=== PATIENT | female | born 1950 | race African-American/Black ===

== ENCOUNTER 2020-01-23 12:35 | Emergency (ER) | payer OTHER, MEDICAID ==
[~2020-01-23] VITALS: Ht 157.5 cm; Wt 54.4 kg
[2020-01-23 15:05] VITALS: BP 150/96
== END 2020-01-23 15:35 | disposition home or self-care (01) ==
LOC: ER 12:35
DX: R51.9 Headache, unspecified (principal); I10 Essential (primary) hypertension; Z90.710 Acquired absence of both cervix and uterus
CPT/HCPCS: 70450

== ENCOUNTER 2020-06-22 22:01 | Inpatient (IN) | payer OTHER, MEDICAID ==
[~2020-06-22] VITALS: Ht 160 cm; Wt 66.0 kg
[2020-06-22 23:18] LABS: Basophils # (auto) 0 10 ^3/uL (0-0.2); Basophils % (auto) 0.5 % (0.0-2.0); Eosinophils # (auto) 0.2 10 ^3/uL (0-0.8); Hematocrit 38.7 % (36.0-46.0); Hemoglobin 13.1 g/dL (12.2-16.2); Lymphocytes # (auto) 2.1 10 ^3/uL (0.4-5.4); Lymphocytes % (auto) 40.9 % (10.0-50.0); Mean Corpuscular Hemoglobin 30.1 pg (28.0-32.0); Mean Corpuscular Hgb Conc. 33.9 g/dL (32.0-36.0); Mean Corpuscular Volume 88.8 fL (80.0-100.0); Monocytes # (auto) 0.4 10 ^3/uL (0-1.3); Neutrophils # (auto) 2.4 10 ^3/uL (1.6-8.6); Neutrophils % (auto) 47.6 % (37.0-80.0); Platelet Count (auto) 262 10^3/uL (140-450); Red Blood Cells 4.36 10^6/uL (4.0-5.20); Red Cell Distribution Width 14.7 % (11.8-14.3); White Blood Cell 5.1 10^3/uL (4.4-10.8)
[2020-06-22 23:31] LABS: Albumin 3.7 g/dL (3.4-5.0); Calcium 8.7 mg/dL (8.5-10.1); INR 0.99 (0.9-1.15); Partial Thromboplastin Time 23.2 sec (23.0-31.2)
[2020-06-22 23:34] LABS: Bilirubin, Total 0.2 mg/dL (0.2-1.0); Total Protein 7.5 g/dL (6.4-8.2)
[2020-06-22 23:35] LABS: Potassium 2.7 mmol/L (3.5-5.1)
[2020-06-23] MEDS: POTASSIUM CHL 20MEQ/100ML 100 ML IV SCH ×2 (00:05→03:15)
[2020-06-23 03:06] LABS: BUN/Creatinine Ratio 23.5
[2020-06-23 03:10] LABS: Potassium 2.8 mmol/L (3.5-5.1)
[2020-06-23] MEDS ORDERED: POTASSIUM EFFERVESENT TAB 25 MEQ PO ONE (04:30)
[2020-06-23 07:20] LABS: Urine Bacteria NONE SEEN /hpf (None Seen); Urine Blood Negative /uL (Negative); Urine Specific Gravity 1.009 (1.001-1.035); Urine WBC 1 /hpf (0 - 5)
[2020-06-23 08:24] LABS: Calcium 8.4 mg/dL (8.5-10.1); Potassium 3.7 mmol/L (3.5-5.1)
[2020-06-23 08:26] LABS: BUN/Creatinine Ratio 18.5
[2020-06-23] MEDS ORDERED: PANTOPRAZOLE 40mg/50ML NS AE 50 ML IV ONE (09:45)
[2020-06-23] MEDS ORDERED: PANTOPRAZOLE 40 MG/10 ML VIAL INJ IV ONE (09:45)
[2020-06-23] MEDS ORDERED: ALBUTEROL SULF 2.5 MG/0.5ML(0.5%) NEB SOLN NEB ONE (10:15)
[2020-06-23] MEDS ORDERED: NITROGLYCERIN 0.4 MG SL TAB SL PRN (10:15)
[2020-06-23] MEDS ORDERED: ONDANSETRON HCL 4 MG/2 ML VIAL IV PRN (10:15)
[2020-06-23] MEDS ORDERED: MORPHINE SULF INJ 2 MG/ML SYRINGE 1ML IV PRN ×2 (10:15)
[2020-06-23] MEDS ORDERED: IPRATROPIUM BROM 0.5 MG/2.5ML INH SOL NEB ONE (10:15)
[2020-06-23] MEDS: SODIUM CHLORIDE 0.9% 1,000 ML IV SCH ×2 (11:35→23:34)
[2020-06-23] MEDS: IPRATROPIUM BROM 0.5 MG/2.5ML INH SOL NEB SCH ×2 (12:00→19:53)
[2020-06-23] MEDS: ALBUTEROL SULF 2.5 MG/0.5ML(0.5%) NEB SOLN NEB SCH ×2 (12:00→19:53)
[2020-06-23 21:49] VITALS: BP 134/71
[2020-06-23 22:00] VITALS: BP 134/71
[2020-06-24 05:00] VITALS: BP 125/90
[2020-06-24 05:27] LABS: Basophils # (auto) 0.1 10 ^3/uL (0-0.2); Basophils % (auto) 1.1 % (0.0-2.0); Eosinophils # (auto) 0.3 10 ^3/uL (0-0.8); Eosinophils % (auto) 6.1 % (0.0-7.0); Hematocrit 34.9 % (36.0-46.0); Hemoglobin 12.1 g/dL (12.2-16.2); Lymphocytes # (auto) 2.3 10 ^3/uL (0.4-5.4); Lymphocytes % (auto) 41.2 % (10.0-50.0); Mean Corpuscular Hemoglobin 30.8 pg (28.0-32.0); Mean Corpuscular Hgb Conc. 34.6 g/dL (32.0-36.0); Mean Corpuscular Volume 88.9 fL (80.0-100.0); Monocytes # (auto) 0.4 10 ^3/uL (0-1.3); Monocytes % (auto) 7.6 % (0.0-12.0); Neutrophils # (auto) 2.5 10 ^3/uL (1.6-8.6); Nucleated Red Blood Cells % 0.1 %; Platelet Count (auto) 229 10^3/uL (140-450); Red Blood Cells 3.92 10^6/uL (4.0-5.20); White Blood Cell 5.7 10^3/uL (4.4-10.8)
[2020-06-24 05:43] LABS: Potassium 3.1 mmol/L (3.5-5.1)
[2020-06-24 05:48] LABS: BUN/Creatinine Ratio 15.5; Calcium 8.2 mg/dL (8.5-10.1)
[2020-06-24] MEDS: IPRATROPIUM BROM 0.5 MG/2.5ML INH SOL NEB SCH ×3 (07:02→19:45)
[2020-06-24] MEDS: ALBUTEROL SULF 2.5 MG/0.5ML(0.5%) NEB SOLN NEB SCH ×3 (07:02→19:45)
[2020-06-24 08:30] VITALS: BP 152/88
[2020-06-24] MEDS: PANTOPRAZOLE 40 MG/10 ML VIAL INJ IV SCH (11:06)
[2020-06-24] MEDS: D5W/SOD CHL 0.45%/KCL 40MEQ 1,000 ML IV SCH (12:25)
[2020-06-24 12:44] VITALS: BP 121/76
[2020-06-24] MEDS ORDERED: GOLYTELY 4L KIT PO ONE (14:00)
[2020-06-24 16:49] VITALS: BP 125/86
[2020-06-24 22:00] VITALS: BP 132/76
[2020-06-25] MEDS: D5W/SOD CHL 0.45%/KCL 40MEQ 1,000 ML IV SCH ×3 (01:00→22:48)
[2020-06-25 05:00] VITALS: BP 120/76
[2020-06-25] MEDS ORDERED: GOLYTELY 4L KIT PO ONE (06:00)
[2020-06-25] MEDS ORDERED: MAGNESIUM CITRATE SOLUTION 300 ML BTL PO ONE ×2 (06:00→11:15)
[2020-06-25 07:03] LABS: Basophils # (auto) 0 10 ^3/uL (0-0.2); Basophils % (auto) 0.9 % (0.0-2.0); Eosinophils # (auto) 0.3 10 ^3/uL (0-0.8); Eosinophils % (auto) 6.2 % (0.0-7.0); Hematocrit 33.6 % (36.0-46.0); Hemoglobin 11.6 g/dL (12.2-16.2); Lymphocytes # (auto) 1.9 10 ^3/uL (0.4-5.4); Mean Corpuscular Hgb Conc. 34.3 g/dL (32.0-36.0); Mean Corpuscular Volume 90.3 fL (80.0-100.0); Monocytes # (auto) 0.3 10 ^3/uL (0-1.3); Monocytes % (auto) 6.9 % (0.0-12.0); Neutrophils # (auto) 2.2 10 ^3/uL (1.6-8.6); Nucleated Red Blood Cells % 0.1 %; Platelet Count (auto) 228 10^3/uL (140-450); Red Blood Cells 3.72 10^6/uL (4.0-5.20); Red Cell Distribution Width 15.1 % (11.8-14.3); White Blood Cell 4.8 10^3/uL (4.4-10.8)
[2020-06-25 07:05] LABS: BUN/Creatinine Ratio 7.4; Calcium 8.4 mg/dL (8.5-10.1); Magnesium 2.2 mg/dL (1.6-2.6); Potassium 3.6 mmol/L (3.5-5.1)
[2020-06-25] MEDS: ALBUTEROL SULF 2.5 MG/0.5ML(0.5%) NEB SOLN NEB SCH ×3 (08:05→19:20)
[2020-06-25] MEDS: IPRATROPIUM BROM 0.5 MG/2.5ML INH SOL NEB SCH ×3 (08:05→19:21)
[2020-06-25] MEDS ORDERED: diphenhdrAMINE HCL 50 MG/1 ML VL ONE (08:30)
[2020-06-25] MEDS ORDERED: fentaNYL CITRATE 100 MCG/2 ML VL ONE (08:30)
[2020-06-25] MEDS ORDERED: MIDAZOLAM HCL 5 MG/ML-1ML VIAL ONE (08:30)
[2020-06-25 09:00] VITALS: BP 127/77
[2020-06-25] MEDS: PANTOPRAZOLE 40 MG/10 ML VIAL INJ IV SCH (09:29)
[2020-06-25] MEDS ORDERED: ACETAMINOPHEN 325 MG TAB PO PRN (09:30)
[2020-06-25 13:00] VITALS: BP 135/86
[2020-06-25 15:54] VITALS: BP 134/89
[2020-06-25] MEDS: fentaNYL CITRATE 100 MCG/2 ML VL ONE ×2 (16:40→16:45)
[2020-06-25] MEDS: diphenhdrAMINE HCL 50 MG/1 ML VL ONE ×2 (16:40→16:45)
[2020-06-25] MEDS: MIDAZOLAM HCL 5 MG/ML-1ML VIAL ONE ×2 (16:40→16:45)
[2020-06-25 17:47] VITALS: BP 129/77
[2020-06-25 22:00] VITALS: BP 150/86
[2020-06-26 05:24] VITALS: BP 129/87
[2020-06-26] MEDS ORDERED: MAGNESIUM CITRATE SOLUTION 300 ML BTL PO ONE (06:00)
[2020-06-26 06:04] LABS: Basophils # (auto) 0.2 10 ^3/uL (0-0.2); Basophils % (auto) 3.3 % (0.0-2.0); Eosinophils # (auto) 0.4 10 ^3/uL (0-0.8); Eosinophils % (auto) 7.9 % (0.0-7.0); Hematocrit 30.6 % (36.0-46.0); Hemoglobin 10.6 g/dL (12.2-16.2); Lymphocytes % (auto) 19.1 % (10.0-50.0); Mean Corpuscular Hemoglobin 30.9 pg (28.0-32.0); Mean Corpuscular Hgb Conc. 34.6 g/dL (32.0-36.0); Mean Corpuscular Volume 89.2 fL (80.0-100.0); Monocytes # (auto) 0.3 10 ^3/uL (0-1.3); Monocytes % (auto) 6.4 % (0.0-12.0); Neutrophils # (auto) 3.4 10 ^3/uL (1.6-8.6); Neutrophils % (auto) 63.3 % (37.0-80.0); Nucleated Red Blood Cells % 0.1 %; Platelet Count (auto) 216 10^3/uL (140-450); Red Blood Cells 3.43 10^6/uL (4.0-5.20); Red Cell Distribution Width 15.3 % (11.8-14.3); White Blood Cell 5.4 10^3/uL (4.4-10.8)
[2020-06-26 06:26] LABS: Potassium 3.8 mmol/L (3.5-5.1)
[2020-06-26 06:35] LABS: BUN/Creatinine Ratio 5.1; Calcium 8.1 mg/dL (8.5-10.1)
[2020-06-26] MEDS: ALBUTEROL SULF 2.5 MG/0.5ML(0.5%) NEB SOLN NEB SCH ×2 (07:01→13:42)
[2020-06-26] MEDS: IPRATROPIUM BROM 0.5 MG/2.5ML INH SOL NEB SCH ×2 (07:01→13:24)
[2020-06-26 09:00] VITALS: BP 128/70
[2020-06-26] MEDS: PANTOPRAZOLE 40 MG/10 ML VIAL INJ IV SCH (09:21)
[2020-06-26] MEDS ORDERED: IBUP600T28 PO (11:19)
[2020-06-26] MEDS ORDERED: HYDR25TA5 PO (11:19)
[2020-06-26 11:26] VITALS: BP 128/70
[2020-06-26 13:00] VITALS: BP 136/85
== END 2020-06-26 16:00 | disposition home or self-care (01) | DRG 379 ==
LOC: ER 22:03 → TELE 22:04 → TELE-CENTR 06-23 21:41
PROVIDERS: ADMIT Nurse Practitioner Acute Care; ATTEND Internal Medicine
PROC: 0DJD8ZZ Inspection of Lower Intestinal Tract, Via Natural or Artificial Opening Endoscopic (ICD-10-PCS; principal; 2020-06-25 16:30)
DX: K57.31 Diverticulosis of large intestine without perforation or abscess with bleeding (principal); I10 Essential (primary) hypertension; J45.909 Unspecified asthma, uncomplicated; E87.6 Hypokalemia; K64.8 Other hemorrhoids; R51.9 Headache, unspecified; Z90.710 Acquired absence of both cervix and uterus; Z20.822 Contact with and (suspected) exposure to COVID-19
CPT/HCPCS: 36415; 45378; 74176; 80048; 80053; 81001; 83735; 85025; 85610; 85730; 86850; 86900; 86901; 87426; 93005; 94640; 96365; 96366; 96367; C9113; G0378; J2250; J3480

== ENCOUNTER 2021-10-04 23:37 | Emergency (ER) | payer BC, MEDICAID ==
[~2021-10-04] VITALS: Ht 160 cm; Wt 59.2 kg
[~2021-10-04 23:37] MED LIST: HYDR25TA5 PO; IBUP600T28 PO
[2021-10-05 00:11] VITALS: BP 179/99
== END 2021-10-05 00:43 | disposition left against medical advice (07) ==
LOC: ER 23:37
DX: R22.41 Localized swelling, mass and lump, right lower limb (principal); Z53.21 Procedure and treatment not carried out due to patient leaving prior to being seen by health care provider